=== PATIENT | male | born 1960 | race Caucasian/White ===

== ENCOUNTER 2020-02-18 16:58 | Outpatient (REF) | payer OTHER, SELFPAY | END 2020-02-18 16:59 | disposition home or self-care (01) | LOC: HO.LAB 16:58 | PROVIDERS: PCP Internal Medicine; Visit Provider Internal Medicine | DX: Z20.828 Contact with and (suspected) exposure to other viral communicable diseases (principal) | CPT/HCPCS: 87635 ==

== ENCOUNTER 2020-03-11 06:16 | Outpatient (REF) | payer OTHER, SELFPAY | END 2020-03-11 06:17 | disposition home or self-care (01) | LOC: HO.LAB 06:16 | PROVIDERS: Visit Provider Internal Medicine | DX: Z20.828 Contact with and (suspected) exposure to other viral communicable diseases (principal) | CPT/HCPCS: C9803; U0003 ==

== ENCOUNTER 2020-03-17 07:54 | Outpatient (REF) | payer OTHER, SELFPAY ==
--- NOTE | 2020-03-17 07:59 | FL_ITS ---
EXAMINATION: XR GI SERIES CLINICAL INFORMATION: Abdominal pain COMPARISON: Previous barium swallow December 2018 TECHNIQUE: Upper GI was performed using thin and thick barium and effervescent granules. FINDINGS: There is a small sliding-type hiatal hernia. There is question of mild distal esophagitis with mucosal irregularity and feline contractions or Hess's esophagus. No reflux is seen. The stomach and duodenum are normal-appearing. No fold thickening, mass, ulcer or stricture is seen. FLUOROSCOPY TIME: 1.1 minute DOSE AREA PRODUCT: 15 gaming per centimeter squared. 34 saved fluoroscopic images. FL/FL upper GI series IMPRESSION: Small sliding-type hiatal hernia. Question mild distal esophagitis/Hess's esophagus. Endoscopic correlation should be considered.
== END 2020-03-17 07:55 | disposition home or self-care (01) ==
LOC: HO.XRAY 07:54
PROVIDERS: PCP Internal Medicine; Visit Provider Internal Medicine
DX: R10.9 Unspecified abdominal pain (principal)
CPT/HCPCS: 74240

== ENCOUNTER → 2020-03-24 10:48 | Outpatient (BNVA) | payer OTHER, SELFPAY | PROVIDERS: PCP Internal Medicine; Visit Provider Nurse Practitioner Family | DX: R07.89 Other chest pain (principal); R00.2 Palpitations; I49.3 Ventricular premature depolarization; I95.1 Orthostatic hypotension; I34.0 Nonrheumatic mitral (valve) insufficiency; Z98.890 Other specified postprocedural states | CPT/HCPCS: 93005 ==

== ENCOUNTER → 2020-04-11 13:50 | Outpatient (REF) | payer OTHER, SELFPAY ==
--- NOTE | 2020-04-11 13:53 | CA_ITS ---
Transthoracic Echocardiogram Patient (Last, First, Middle): Ronald Alaniz, Gender: Male Date of : 1960 Age: 59 Procedure Date: 04/11/2020 Procedure Type: Transthoracic Echocardiogram Location: OP Height: 195.58 cm Weight: 113.4 kg BSA: 2.46 m2 Heart Rate: bpm BP: 120 / 80 mmHg On Site Property Manager: FRANCK Guadarrama MD: Amy Chang TIME STUDY ANALYST-C Symptoms: I34.0 - Nonrheumatic mitral (valve) insufficiency Study Quality: Fair Conclusions: - Normal left ventricular size, thickness, systolic function, and wall motion. The visually estimated ejection fraction is between 55-60%. Diastolic function is normal for age. - The left atrium is mildly dilated. - The mitral valve appears myxomatous. There is mild to moderate mitral valve regurgitation. There is no mitral valve stenosis. - There is mild dilatation of the sinuses of Valsalva and mild dilatation of the ascending aorta. Findings Left Ventricle Normal left ventricular size, thickness, systolic function, and wall motion. The visually estimated ejection fraction is between 55-60%. Diastolic function is normal for age. Right Ventricle Normal right ventricular cavity size and systolic function. Atria The left atrium is mildly dilated. There is no evidence of interatrial shunt by color Doppler. Aortic Valve There is a normal trileaflet aortic valve. There is no aortic valve stenosis. There is no aortic valve regurgitation. Mitral Valve The mitral valve appears myxomatous. There is mild to moderate mitral valve regurgitation. There is no mitral valve stenosis. Pulmonic Valve Normal pulmonic valve structure and function. There is trace pulmonic valve regurgitation. Tricuspid Valve Normal tricuspid valve structure and function. There is no tricuspid valve regurgitation. Normal right atrial pressure. There is no evidence of pulmonary hypertension. Great Vessels There is mild dilatation of the sinuses of Valsalva and mild dilatation of the ascending aorta. Venous The inferior vena cava is normal in size and collapses greater than 50% with inspiration. Pericardium/Pleural There is no evidence of pericardial effusion. Prior Study Comparison Changes noted compared to prior study dated: 04/10/2019. Mild dilatation of the aortic root and ascending aorta. Measurements 2D Linear Measurements IVSd: 1.07 0.6-0.9/0.6-1.0 cm LVIDd: 5.36 3.9-5.3/4.2-5.9 cm LVIDd Index: 2.18 2.4-3.2/2.2-3.1 cm/m2 LVIDs: 3.15 2.0-3.6 cm LVPWd: 1.06 0.7-1.1 cm Ao Root: 4.00 2.1-3.5 cm LA Diam: 4.20 2.7-3.8/3.0-4.0 cm LAIDs Index: 1.71 1.5-2.3 cm/m2 LV Mass: 276.85 67-162/88-224 g LV Mass Index: 112.54 43-95/49-115 g/m2 LVOT Diam: 2.30 3.0+(-)1.3 cm Mitral Valve MV Pk E: 0.67 MV PK A: 0.86 MV Decel Time: 322.00 E/A: 0.80 PHT: 94.00 MVA PHT: 2.34 Decel Cocke: 2.08 Aortic Valve AoV Pk Quinn: 1.26 AoV Mn Quinn: 0.88 AoV VTI: 0.26 AoV Pk Grad: 6.00 Aov Mn Grad: 3.00 BRITTNI Cont.VTI: 3.12 LVOT LVOT Pk Quinn: 0.93 LVOT Mn Quinn: 0.60 LVOT VTI: 0.19 LVOT Pk Grad: 3.00 LVOT Mn Grad: 2.00 LVOT Diam: 2.30 LVOT Area: 4.15 Diastolic Function MV Pk E: 0.67 MV Pk A: 0.86 E/A: 0.80 Tricuspid Valve TR Pk Quinn: 2.22 TR Pk Grad: 20.00 RA Press: 3.00 RVSP: 23.00 Great Vessels Aorta Ao Root-2D: 4.00 2.0-3.7 cm Sinus of Valsalva: 4.00 2.0-3.5 cm Ao Asc: 3.80 2.1-3.4 cm Ao Arch: 3.40 Updated in Other Vendor System with Status of Final Zhao Green MD electronically signed on 04/13/2020 1:41:48 PM with status of Final
== END ==
LOC: HO.CARD 13:50
PROVIDERS: Visit Provider Nurse Practitioner Family
DX: I34.0 Nonrheumatic mitral (valve) insufficiency (principal)
CPT/HCPCS: 93306

== ENCOUNTER 2020-04-28 15:44 | Outpatient (REF) | payer OTHER, SELFPAY | END 2020-04-28 15:45 | disposition home or self-care (01) | LOC: HO.LAB 15:44 | PROVIDERS: Visit Provider Internal Medicine | DX: Z20.822 Contact with and (suspected) exposure to COVID-19 (principal) | CPT/HCPCS: 36415; C9803; U0003 ==

== ENCOUNTER 2020-06-20 07:45 | Outpatient (REF) | payer OTHER, SELFPAY | END 2020-06-20 07:46 | disposition home or self-care (01) | LOC: HO.LAB 07:45 | PROVIDERS: Visit Provider Internal Medicine | DX: Z20.822 Contact with and (suspected) exposure to COVID-19 (principal) | CPT/HCPCS: 36415; C9803; U0003; U0005 ==

== ENCOUNTER → 2020-10-08 13:46 | Outpatient (BNVA) | payer OTHER, SELFPAY | PROVIDERS: PCP Internal Medicine; Visit Provider Internal Medicine ==

== ENCOUNTER → 2020-11-11 14:55 | Outpatient (REF) | payer OTHER, SELFPAY | LOC: HO.SL 14:55 | PROVIDERS: PCP Internal Medicine; Visit Provider Internal Medicine | DX: G47.33 Obstructive sleep apnea (adult) (pediatric) (principal); I49.3 Ventricular premature depolarization | CPT/HCPCS: 95806 ==

== ENCOUNTER → 2020-12-18 13:15 | Outpatient (BNVA) | payer OTHER, SELFPAY | PROVIDERS: PCP Internal Medicine; Visit Provider Internal Medicine ==